=== PATIENT | female | born 1955 | race Caucasian/White ===

== ENCOUNTER → 2019-12-31 | Outpatient (CLI) | payer MEDICARE, MEDICAID | END | disposition home or self-care (01) | LOC: LAB 08:13 | PROVIDERS: ATTEND Internal Medicine Critical Care Medicine | DX: Z03.818 Encounter for observation for suspected exposure to other biological agents ruled out (principal) | CPT/HCPCS: C9803; U0003 ==

== ENCOUNTER → 2020-01-02 | Outpatient (CLI) | payer MEDICARE, MEDICAID ==
[2020-01-02] VITALS (16 sets, daily range): BP systolic 114–138; BP diastolic 69–82
[~2020-01-02] MED LIST: FENTANYL CITRATE/PF 50MCG/ML 2ML VIAL IV ONE; FENTANYL CITRATE/PF 50MCG/ML 2ML VIAL ONE; LIDOCAINE HCL 1% 20ML VIAL (Pyxis) INJ ONE; MIDAZOLAM HCL 2 MG/2 ML VIAL ONE; SODIUM BICARBONATE 4% (2.4MEQ) 5ML VIAL IV ONE
== END | disposition home or self-care (01) ==
LOC: RAD 10:04
PROVIDERS: ATTEND Internal Medicine Critical Care Medicine
DX: C50.311 Malignant neoplasm of lower-inner quadrant of right female breast (principal); Z88.5 Allergy status to narcotic agent
CPT/HCPCS: 71045; 77012; 88305; J3010; J3490; 99152; 99153; J2250; G0500

== ENCOUNTER → 2020-01-28 | Outpatient (CLI) | payer MEDICARE, MEDICAID ==
[~2020-01-28] MED LIST changes: -FENTANYL CITRATE/PF 50MCG/ML 2ML VIAL IV ONE; -FENTANYL CITRATE/PF 50MCG/ML 2ML VIAL ONE; +GADOBENATE DIMEGLUMINE 529 MG/ML 10ML IV ONE; -LIDOCAINE HCL 1% 20ML VIAL (Pyxis) INJ ONE; -MIDAZOLAM HCL 2 MG/2 ML VIAL ONE; -SODIUM BICARBONATE 4% (2.4MEQ) 5ML VIAL IV ONE
== END | disposition home or self-care (01) ==
LOC: MRI 08:33
PROVIDERS: ATTEND Internal Medicine Hematology & Oncology
DX: C79.31 Secondary malignant neoplasm of brain (principal); I67.82 Cerebral ischemia; C34.11 Malignant neoplasm of upper lobe, right bronchus or lung
CPT/HCPCS: 70553; A9577

== ENCOUNTER → 2020-02-03 | Outpatient (CLI) | payer MEDICARE, MEDICAID | END | disposition home or self-care (01) | LOC: LAB 08:13 | PROVIDERS: ATTEND Internal Medicine Hematology & Oncology | DX: Z01.812 Encounter for preprocedural laboratory examination (principal); Z20.828 Contact with and (suspected) exposure to other viral communicable diseases; C34.11 Malignant neoplasm of upper lobe, right bronchus or lung | CPT/HCPCS: C9803; U0003 ==

== ENCOUNTER 2020-02-21 16:31 | Inpatient (IN) | payer MEDICARE, MEDICAID ==
[2020-02-20 23:30] VITALS: BP 127/84
[~2020-02-21] VITALS: Ht 160 cm; Wt 52.2 kg
[2020-02-21] MEDS ORDERED: MORPHINE SULFATE 4 MG/ML CPJ (NOT FOR IM USE) IV STA (17:57)
[2020-02-21] MEDS ORDERED: ONDANSETRON HCL 4MG/2ML INJ IV ONE (18:00)
[2020-02-21 18:10] LABS: BASOPHILS % 1.5 % (0.0-2.0); EOSINOPHILS % 5.6 % (0.0-5.0); HEMATOCRIT. 35.6 % (36.0-48.0); HEMOGLOBIN. 12.3 g/dL (12.0-16.0); LYMPHOCYTES % 26.9 % (20.0-50.0); MEAN CORPUSCULAR HEMOGLOBIN 31.9 pg (28.0-32.0); MEAN CORPUSCULAR VOLUME 92.5 fL (81.0-99.0); MEAN PLATELET VOLUME 7.9 fl (7.4-10.4); MONOCYTES % 7.8 % (2.0-8.0); NEUTROPHILS % 58.2 % (40.0-76.0); PLATELET 221 x1000/uL (130-400); RED BLOOD CELL COUNT 3.85 mill/uL (4.2-5.4); RED CELL DISTRIBUTION WIDTH 12.9 % (11.6-14.6)
[2020-02-21] MEDS ORDERED: IPRATROPIUM/ALBUTEROL 0.5-3(2.5)MG/3ML NEB HHN PRN (18:15)
[2020-02-21] MEDS ORDERED: ONDANSETRON HCL 4MG/2ML INJ IV PRN (18:15)
[2020-02-21] MEDS ORDERED: LORAZEPAM 0.5MG TABLET PO PRN (18:15)
[2020-02-21 18:18] LABS: CHLORIDE 105 mEq/L (98-107); INR 1.1; PROTHROMBIN TIME 11.1 sec (9.6-11.0)
[2020-02-21 18:33] LABS: D-DIMER 2.84 mg/L FEU (<0.50)
[2020-02-21 19:25] LABS: CLARITY URINE CLEAR (CLEAR); COLOR URINE YELLOW (YELLOW); KETONES URINE NEGATIVE (NEGATIVE); LEUKOCYTE ESTERASE URINE NEGATIVE (NEGATIVE); NITRITE URINE NEGATIVE (NEGATIVE); OCCULT BLOOD URINE NEGATIVE (NEGATIVE); PH URINE 6.5 (4.5-8.0); PROTEIN URINE NEGATIVE (NEGATIVE); SPECIFIC GRAVITY URINE 1.007 (1.005-1.030); UROBILINOGEN URINE 0.2 E.U./dL (0.2-1.0)
[2020-02-21] MEDS: HYDROCODONE/ACETAMINOPHEN 10/325MG TABLET PO PRN (21:20)
[2020-02-21] MEDS ORDERED: POTASSIUM CHLORIDE 20MEQ TABLET SR PO NR (23:15)
[2020-02-22] VITALS: BP 127/84
[2020-02-22] MEDS ORDERED: HYDR-3282 MT (01:35)
[2020-02-22] MEDS: HYDROCODONE/ACETAMINOPHEN 10/325MG TABLET PO PRN ×4 (03:41→22:26)
[2020-02-22 04:00] VITALS: BP 115/65
[2020-02-22 04:57] LABS: CHLORIDE 107 mEq/L (98-107)
[2020-02-22 05:37] LABS: EOSINOPHILS % 6.8 % (0.0-5.0); LYMPHOCYTES % 22.2 % (20.0-50.0); MEAN CORPUSCULAR HEMOGLOBIN 32.9 pg (28.0-32.0); MEAN CORPUSCULAR VOLUME 92.6 fL (81.0-99.0); MEAN PLATELET VOLUME 7.9 fl (7.4-10.4); MONOCYTES % 11.9 % (2.0-8.0); NEUTROPHILS % 57.1 % (40.0-76.0); PLATELET 199 x1000/uL (130-400); RED BLOOD CELL COUNT 3.35 mill/uL (4.2-5.4); RED CELL DISTRIBUTION WIDTH 12.9 % (11.6-14.6)
[2020-02-22] MEDS ORDERED: IOHEXOL-350 100 ML BOTTLE ONE (07:53)
[2020-02-22 08:00] VITALS: BP 103/63
[2020-02-22] MEDS ORDERED: ENOXAPARIN 60MG/0.6ML SYR SUBCUT SCH (09:00)
[2020-02-22 12:00] VITALS: BP 104/60
[2020-02-22] MEDS: DOCUSATE SODIUM SUGAR FREE 100MG/10ML UDC PO SCH (12:39)
[2020-02-22 16:00] VITALS: BP 150/93
[2020-02-22] MEDS: LEVOFLOXACIN 500MG PREMIX 100 ML IV SCH (16:04)
[2020-02-22 20:00] VITALS: BP 122/76
[2020-02-23] VITALS: BP 121/64
[2020-02-23 04:00] VITALS: BP 123/72
[2020-02-23 06:11] LABS: BASOPHILS % 1.9 % (0.0-2.0); EOSINOPHILS % 6.9 % (0.0-5.0); HEMATOCRIT. 33.5 % (36.0-48.0); HEMOGLOBIN. 11.8 g/dL (12.0-16.0); LYMPHOCYTES % 27.4 % (20.0-50.0); MEAN CORPUSCULAR HEMOGLOBIN 32.9 pg (28.0-32.0); MEAN CORPUSCULAR VOLUME 93.3 fL (81.0-99.0); MEAN PLATELET VOLUME 7.6 fl (7.4-10.4); MONOCYTES % 13.6 % (2.0-8.0); NEUTROPHILS % 50.2 % (40.0-76.0); PLATELET 215 x1000/uL (130-400); RED BLOOD CELL COUNT 3.59 mill/uL (4.2-5.4); RED CELL DISTRIBUTION WIDTH 12.9 % (11.6-14.6)
[2020-02-23 06:58] LABS: CHLORIDE 108 mEq/L (98-107)
[2020-02-23 08:00] VITALS: BP 141/91
[2020-02-23] MEDS: DOCUSATE SODIUM SUGAR FREE 100MG/10ML UDC PO SCH (08:04)
[2020-02-23] MEDS: HYDROCODONE/ACETAMINOPHEN 10/325MG TABLET PO PRN ×2 (08:07→20:11)
[2020-02-23] MEDS ORDERED: HEPARIN 25,000 UNITS PREMIX 250 ML IV SCH (09:00)
[2020-02-23] MEDS: LEVOFLOXACIN 500MG PREMIX 100 ML IV SCH (11:02)
[2020-02-23] MEDS ORDERED: HEPARIN 5000 UNITS/ML VIAL IV PRN ×2 (11:30)
[2020-02-23] MEDS ORDERED: HEPARIN 25,000 UNITS PREMIX 250 ML IV PRN (11:30)
[2020-02-23] MEDS ORDERED: HEPARIN 5000 UNITS/ML VIAL IV SCH (11:30)
[2020-02-23 12:00] VITALS: BP 124/84
[2020-02-23 16:00] VITALS: BP 107/75
[2020-02-23 20:15] VITALS: BP 111/68
[2020-02-24] VITALS: BP 105/57
[2020-02-24 04:00] VITALS: BP 109/68
[2020-02-24 08:00] VITALS: BP 114/70
[2020-02-24] MEDS: HYDROCODONE/ACETAMINOPHEN 10/325MG TABLET PO PRN ×2 (08:40→17:06)
[2020-02-24] MEDS ORDERED: DOCUSATE SODIUM SUGAR FREE 100MG/10ML UDC PO SCH (09:00)
[2020-02-24 10:13] LABS: BASOPHILS % 1.5 % (0.0-2.0); EOSINOPHILS % 7.2 % (0.0-5.0); HEMATOCRIT. 37.1 % (36.0-48.0); LYMPHOCYTES % 19.4 % (20.0-50.0); MEAN CORPUSCULAR HEMOGLOBIN 32.8 pg (28.0-32.0); MEAN CORPUSCULAR VOLUME 93.9 fL (81.0-99.0); MEAN PLATELET VOLUME 7.5 fl (7.4-10.4); MONOCYTES % 13.7 % (2.0-8.0); NEUTROPHILS % 58.2 % (40.0-76.0); PLATELET 270 x1000/uL (130-400); RED BLOOD CELL COUNT 3.95 mill/uL (4.2-5.4); RED CELL DISTRIBUTION WIDTH 13.1 % (11.6-14.6)
[2020-02-24 10:41] LABS: CHLORIDE 106 mEq/L (98-107)
[2020-02-24] MEDS: LEVOFLOXACIN 500MG PREMIX 100 ML IV SCH (12:00)
[2020-02-24 12:15] VITALS: BP 102/64
[2020-02-24] MEDS ORDERED: GADOBENATE DIMEGLUMINE 529 MG/ML 10ML IV ONE (13:54)
[2020-02-24 16:20] VITALS: BP 108/62
[2020-02-24 17:30] VITALS: BP 20/108
== END 2020-02-24 18:25 | disposition home or self-care (01) | DRG 299 ==
LOC: ER 16:31 → 5WST 20:22 → ENRESERV 21:29
PROVIDERS: ADMIT Internal Medicine; ATTEND Internal Medicine
DX: I82.621 Acute embolism and thrombosis of deep veins of right upper extremity (principal); J18.9 Pneumonia, unspecified organism; C34.90 Malignant neoplasm of unspecified part of unspecified bronchus or lung; E44.1 Mild protein-calorie malnutrition; D68.69 Other thrombophilia; C79.9 Secondary malignant neoplasm of unspecified site; C79.31 Secondary malignant neoplasm of brain; I82.90 Acute embolism and thrombosis of unspecified vein; M79.7 Fibromyalgia; D72.819 Decreased white blood cell count, unspecified; Z68.20 Body mass index [BMI] 20.0-20.9, adult; Z88.5 Allergy status to narcotic agent; Z88.2 Allergy status to sulfonamides; Z79.899 Other long term (current) drug therapy; Z03.818 Encounter for observation for suspected exposure to other biological agents ruled out; E87.6 Hypokalemia; R47.02 Dysphasia
CPT/HCPCS: 36415; 70490; 70551; 70552; 71275; 80048; 80053; 81003; 83880; 84443; 84484; 85025; 85379; 85384; 87426; 93005; 93970; 99285; A9577; J1644; J1650; J1956; J2270; J2405; Q9967

== ENCOUNTER → 2020-06-23 | Outpatient (CLI) | payer MEDICARE, MEDICAID ==
[~2020-06-23] MED LIST changes: -GADOBENATE DIMEGLUMINE 529 MG/ML 10ML IV ONE; +HYDR-4348 MT
== END | disposition home or self-care (01) ==
LOC: LAB 08:08
PROVIDERS: ATTEND Internal Medicine Hematology & Oncology
DX: Z01.812 Encounter for preprocedural laboratory examination (principal); Z20.822 Contact with and (suspected) exposure to COVID-19
CPT/HCPCS: 87426

== ENCOUNTER → 2020-06-23 | Day surgery (SDC) | payer MEDICARE, MEDICAID | END | disposition home or self-care (01) | LOC: RAD 09:26 | PROVIDERS: ATTEND Internal Medicine Hematology & Oncology | DX: Z45.2 Encounter for adjustment and management of vascular access device (principal); R23.4 Changes in skin texture; Z20.822 Contact with and (suspected) exposure to COVID-19; Z87.891 Personal history of nicotine dependence; Z79.899 Other long term (current) drug therapy; Z88.2 Allergy status to sulfonamides; Z88.5 Allergy status to narcotic agent | CPT/HCPCS: 87426 ==

== ENCOUNTER → 2021-03-24 | Outpatient (CLI) | payer MEDICARE, MEDICAID | END | disposition home or self-care (01) | LOC: NM 07:42 | PROVIDERS: ATTEND Internal Medicine Critical Care Medicine | DX: E04.1 Nontoxic single thyroid nodule (principal) | CPT/HCPCS: 78014; A9516 ==